=== PATIENT | female | born 1985 | race Caucasian/White ===

== ENCOUNTER 2019-01-05 11:31 | Emergency (ER) | payer MEDICAID ==
[~2019-01-05] VITALS: Ht 165.1 cm; Wt 52.2 kg
[2019-01-05 11:38] VITALS: BP 92/42
--- NOTE | 2019-01-05 11:51 | NUR ---
relieving RN for lunch, pt is resting quietly on gurney, waiting to be evaluated by provider
[2019-01-05] MEDS ORDERED: LIDOcaine 2% 5ml jelly TOP ONE (12:10)
[2019-01-05] MEDS ORDERED: AMOX-580 PO (13:25)
[2019-01-05] MEDS ORDERED: CHLO473M3 PO (13:25)
== END 2019-01-05 13:31 | disposition home or self-care (01) ==
LOC: ER 11:33
DX: K04.7 Periapical abscess without sinus (principal); K02.9 Dental caries, unspecified
CPT/HCPCS: 41800; 99283

== ENCOUNTER 2023-05-01 14:26 | Emergency (ER) | payer MEDICAID ==
[~2023-05-01] VITALS: Ht 160 cm; Wt 61.6 kg
[~2023-05-01 14:26] MED LIST: CHLO473M3 PO
[2023-05-01] MEDS ORDERED: cyclobenzaprine 10mg tablet PO ONE (16:15)
[2023-05-01] MEDS ORDERED: ketorolac trometh. 30mg/ml inj. IM ONE (16:15)
[2023-05-01] MEDS ORDERED: HYDROcodone/acetaminophen 5mg/325mg tablet PO ONE (16:15)
[2023-05-01] MEDS ORDERED: NAPR-56 PO (16:16)
[2023-05-01] MEDS ORDERED: CYCL-394 PO (16:16)
[2023-05-01 17:14] VITALS: BP 120/72; PULSE 72; RESP 18; TEMP 98.1; O2SAT 100
== END 2023-05-01 17:17 | disposition home or self-care (01) ==
LOC: ER 14:27
DX: S39.012A Strain of muscle, fascia and tendon of lower back, initial encounter (principal); X58.XXXA Exposure to other specified factors, initial encounter; Y93.89 Activity, other specified; Y92.89 Other specified places as the place of occurrence of the external cause; Y99.8 Other external cause status; F17.200 Nicotine dependence, unspecified, uncomplicated; G89.29 Other chronic pain; M54.9 Dorsalgia, unspecified; Z79.899 Other long term (current) drug therapy
CPT/HCPCS: 96372; 99283; J1885

== ENCOUNTER 2024-08-23 09:37 | Day surgery (SDC) | payer MEDICAID ==
[2024-08-18 12:13] LABS: BASOPHILS # (AUTO) 0.1 X10'3 (0-0.2); BASOPHILS % (AUTO) 0.6 % (0-1); EOSINOPHILS # (AUTO) 0.5 X10'3 (0-0.9); EOSINOPHILS % (AUTO) 5.3 % (0-6); LYMPHOCYTES # (AUTO) 2.3 X10'3 (1.1-4.8); LYMPHOCYTES % (AUTO) 23.8 % (21-51); MEAN CORPUSCULAR HEMOGLOBIN 27.3 PG (27.0-31.0); MEAN CORPUSCULAR HGB CONC 33.1 g/dL (33.0-36.5); MEAN CORPUSCULAR VOLUME 82.4 FL (78-98); MEAN PLATELET VOLUME 8.1 FL (7.4-10.4); MONOCYTES # (AUTO) 0.8 X10'3 (0-0.9); NEUTROPHILS # (AUTO) 6.1 X10'3 (1.8-7.7); NEUTROPHILS % (AUTO) 62.3 % (42-75); PRE OP HEMATOCRIT 36.5 % (35.0-45.0); PRE OP HEMOGLOBIN 12.1 g/dL (12.0-16.0); PRE OP PLATELET COUNT 246 X10'3 (140-440); PRE OP WHITE BLOOD COUNT 9.8 10'3 (4.8-10.8); RED BLOOD COUNT 4.43 X10'6 (4.20-5.60)
[~2024-08-23] VITALS: Ht 160 cm; Wt 66.3 kg
[2024-08-23] MEDS: ceFAZolin 2gm in dextrose, iso 50 ML IV ONE (05:30)
[~2024-08-23 09:37] MED LIST changes: -CHLO473M3 PO; +METH10SO PO; +enalaprilat 1.25mg/ml 2ml vial IV PRN; +labetalol 20mg/4ml (5mg/ml) syringe IV PRN; +meperidine/PF 25mg/ml syringe IV PRN; +morphine 4 MG/ML inj SYRINge IV PRN; +ondansetron/PF 4mg/2ml inj IV PRN; +proCHLORperazine 10 MG/2 ml inj IV PRN; +ringers solution, lacted 1,000 ML IV SCH
[2024-08-23 09:43] VITALS: BP 101/65; PULSE 52; RESP 16; TEMP 98.3; O2SAT 98
[2024-08-23 11:45] LABS: ALBUMIN 3.5 G/DL (3.4-5.0); ALKALINE PHOSPHATASE 81 IU/L (46-116); BLOOD UREA NITROGEN 12 MG/DL (7-18); BUN/CREATININE RATIO 14.8 (10.0-20.0); CALCIUM 8.6 MG/DL (8.5-10.1); CHLORIDE 102 MMOL/L (99-107); CREATININE 0.81 MG/DL (0.40-0.90); PRE OP ALT 15 U/L (30-65); PRE OP ANION GAP 5 (8-16); PRE OP AST 14 U/L (10-37); PRE OP BILIRUB, TOTAL 0.3 MG/DL (0.0-1.0); PRE OP GLUCOSE 85 MG/DL (70-104); PRE OP POTASSIUM 4.4 MMOL/L (3.4-5.1); PRE OP SODIUM 137 MMOL/L (135-145); TOTAL CARBON DIOXIDE 29.7 MMOL/L (24-32); TOTAL PROTEIN 6.9 G/DL (6.4-8.2); eCRCL 79 ML/MIN; eGFR 80 ML/MIN
[2024-08-23] MEDS: famotidine 20mg tablet PO ONE (11:51)
[2024-08-23] MEDS: ringers solution, lacted 1,000 ML IV SCH (11:54)
[2024-08-23 12:00] LABS: BETA HCG,QUANTITATIVE < 1.0 mIU/ml
[2024-08-23] MEDS ORDERED: LIDOcaine 2% (20mg/ml) 5ml vial ONE (12:44)
[2024-08-23] MEDS ORDERED: BUPIVAcaine/PF 2.5mg/ml (0.25%) 10ml vial ONE (12:44)
[2024-08-23] MEDS ORDERED: sevoflurane 250ml liquid IH ONE (12:57)
[2024-08-23 13:25] VITALS: BP 103/58; PULSE 43; RESP 14; O2SAT 98
[2024-08-23 13:30] VITALS: BP 101/57; PULSE 50; RESP 12; O2SAT 97
[2024-08-23 13:40] VITALS: BP 108/54; PULSE 53; RESP 13; O2SAT 96
[2024-08-23] MEDS: morphine 2 MG/ML inj. syringe IV PRN (13:48)
[2024-08-23 13:50] VITALS: BP 90/68; PULSE 51; RESP 16; O2SAT 97
[2024-08-23] MEDS: acetaminophen w/codeine (30MG) #3 tablet PO ONE (13:52)
[2024-08-23 14:00] VITALS: PULSE 52; RESP 12; O2SAT 96
== END 2024-08-23 14:05 | disposition home or self-care (01) ==
LOC: PAS 09:37
PROVIDERS: ATTEND Orthopaedic Surgery Hand Surgery
DX: G56.01 Carpal tunnel syndrome, right upper limb (principal); G56.21 Lesion of ulnar nerve, right upper limb; Z79.899 Other long term (current) drug therapy; Z98.890 Other specified postprocedural states; Z86.2 Personal history of diseases of the blood and blood-forming organs and certain disorders involving the immune mechanism; Z87.891 Personal history of nicotine dependence
CPT/HCPCS: 29848; 36415; 64718; 80053; 82948; 84702; 85025; J0690; J1885; J2003; J2270; J2405; J2704; J3490; J7030; J7120; Z7506; Z7512; A4215; A6449; A7000